=== PATIENT | male | born 2000 | race Caucasian/White ===

== ENCOUNTER 2018-11-13 15:30 | Observation (INO) ==
[2018-11-13] MEDS ORDERED: ONDANSETRON INJ 2 MG/ML 2 ML VIAL IV STA (16:19)
[2018-11-13] MEDS ORDERED: SODIUM CHLORIDE 0.9% 1000ML 1,000 ML IV SCH (16:30)
[2018-11-13 16:45] LABS: Appearance Urine Clear (Clear); Bilirubin Urine Negative (Negative); Color Urine Yellow; Glucose Urine UA Negative (Negative); Ketones Urine Negative (Negative); Leukocyte Esterase Urine Negative (Negative); Nitrite Urine Negative (Negative); Protein Urine Negative (Negative); Specific Gravity Urine 1.009 (1.000-1.030); Urobilinogen Urine Negative (Negative)
[2018-11-13] MEDS ORDERED: IOVERSOL 100ml IV PRN (17:11)
--- NOTE | 2018-11-13 17:31 | CT Scan Report ---
CT abd pelvis IV con only CLINICAL HISTORY: 18 years-old Male presenting with rlq pain eval for appendicitis, creatinine 1.1 to day at [facility]. TECHNIQUE: Multidetector CT of the abdomen and pelvis was performed after the administration of intra venous contrast. IV contrast: 94 mL of Optiray 320. One or more dose lowering techniques were used co nsistent with the principles of ALARA (as low as reasonably achievable), including automatic exposure control, mA or kV adjustment to individual patient size, and/or use of iterative reconstruction. COMPARISON: None. CT DOSE (mGy.cm): The estimated cumulative dose is 386.39 mGycm. FINDINGS: Tubular Stock Glass Bulb Machine Former topogram: Unremarkable. Lung bases: No focal infiltrate or nodule at the lung bases. Normal heart size. No pericardial or ple ural effusion. Liver: Normal morphology. No liver lesion. Mild periportal edema possibly due to aggressive volume re suscitation. Patent hepatic vasculature. Biliary: No intrahepatic or extrahepatic biliary ductal dilatation. Normal gallbladder. Pancreas: Normal. Spleen: Normal. Splenule noted. Adrenal glands: Normal. Kidneys and ureters: Normal. No hydronephrosis. Bladder: Incompletely evaluated secondary to underdistention. Pelvic organs: Prostate and seminal vesicles normal. Bowel: The appendix is mildly dilated measuring 9 mm in diameter. Mucosal thickening and hyperemia. A n obstructing calculus is noted at the appendiceal base with an additional appendicolith noted at the tip. Trace periappendiceal fat infiltration. No evidence of perforation. No adjacent fluid collectio n to suggest abscess. No bowel obstruction. No wall thickening of small bowel is apparent. Peritoneal cavity: No free fluid or intraperitoneal gas. Lymph nodes: No enlarged lymph nodes in the abdomen or pelvis. Vasculature: Aorta and IVC patent and normal in caliber. Abdominal wall: Normal. 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 IMPRESSION: 1. Acute uncomplicated appendicitis. Surgical consultation recommended. The report will be called/faxed according to standard departmental protocol. Electronically signed by: Steve Tran M.D. 11/13/2018 5:30 PM
[2018-11-13] MEDS ORDERED: PROPOFOL IV EMULSION 10 MG/ML 20 ML VIAL IV ONE (17:51)
[2018-11-13] MEDS ORDERED: ONDANSETRON INJ 2 MG/ML 2 ML VIAL ONE ×2 (17:51→18:53)
[2018-11-13] MEDS ORDERED: LIDOCAINE HCL 2% 2 ML VIAL/AMP(20MG/ML) INFIL ONE (17:51)
[2018-11-13] MEDS ORDERED: fentaNYL citrate 100 MCG/2 ML VIAL ONE (17:51)
[2018-11-13] MEDS ORDERED: GLYCOPYRROLATE 0.2 MG/ML VIAL ONE ×2 (17:51→18:53)
[2018-11-13] MEDS ORDERED: DEXAMETHASONE SOD INJ 4 MG/ML VIAL ONE (17:51)
[2018-11-13] MEDS ORDERED: NEOSTIGMINE METHYLSULFATE 5 MG/5 ML SYR ONE (17:51)
[2018-11-13] MEDS ORDERED: MIDAZOLAM HCL 1 MG/ML 2ML VIAL ONE (17:51)
--- NOTE | 2018-11-13 17:52 | History & Physical Report ---
Date of Service November 13, 2018 Assessment & Plan (1) Acute appendicitis: We discussed his diagnosis and recommendations. We discussed the risks of laparoscopic appendectomy which include bleeding, infection, injury to another organ, staple line leaks, DVT, PE etc. Following this discussion I answered all of his questions. We are going to take him to the ER [facility] for laparoscopic possible open appendectomy. History of Present Illness Primary Care Provider: [facility] Patient with a 5-day history of abdominal pain. Is primarily in the mid abdomen with slight deviation to the right lower quadrant. CT scan shows acute uncomplicated appendicitis. Allergies Allergy/AdvReac Type Severity Reaction Status Date / Time No Known Allergies Allergy Verified 11/13/18 16:26 Home Medications Home Medications Medication Instructions Recorded Confirmed Type albuterol sulfate 2 puff INHALATION Q6H PRN 07/30/18 11/13/18 History cetirizine [Zyrtec] 10 mg PO DAILY PRN 07/30/18 11/13/18 History Past Med/Surg History Medical History Asthma No significant past medical history Surgical History History of repair of ACL S/P left knee arthroscopy Family History Other No significant family history Social History Feels Safe at Home: Yes Smoking Status: Never smoker Review of Systems All systems reviewed & are unremarkable except as noted in HPI & below Physical Exam 2 Vital Signs (Past 24 Hours): Last Vital Signs Temp 37.0 C 11/13/18 15:47 Pulse 60 11/13/18 17:23 Resp 18 11/13/18 17:23 BP 131/66 11/13/18 17:23 Pulse Ox 99 11/13/18 17:23 Physical Exam: Alert and oriented x3 no acute distress. HEENT: [place]. EOMI. no jaundice Heart: RRR Lungs: cta b/l abd: soft. +guarding. +LLQ ttp. ext: no c/c/e Results & Data Medications Administered Ioversol (Optiray 320 100ml) 94 ml IV ONCE PRN PRN Reason: Interaction Checking Stop: 11/17/18 17:10 Last Admin: 11/13/18 17:12 Dose: 94 ml
--- NOTE | 2018-11-13 18:05 | Anesthesiology Consultation ---
Date of Service November 13, 2018 Assessment & Plan Chart Review Chart Review: Acceptable Risk for Surgery and Patient NOT seen in Pre Admission Testing Consults Requested none ASA ASA2E Proposed Anesthesia Anesthesia Type: General Risk / Benefits Reviewed With: PT / POA / Parent / Guardian, Accepts Plan and Informed Consent Obtained NPO Date Last Intake of Fluids: 11/13/18 Time Last Intake of Fluids: 14:00 Date Last Intake of Solids: 11/13/18 Time Last Intake of Solids: 12:00 History Surgery Operation Date: 11/13/18 18:15 Proposed Procedures p Laparoscopic Appendectomy - Stas Law, DO Height/Weight Height: 5 ft 10 in Weight: 75.6 kg Allergies Allergy/AdvReac Type Severity Reaction Status Date / Time No Known Allergies Allergy Verified 11/13/18 16:26 Medications Home Medications Medication Instructions Recorded Confirmed Last Taken albuterol sulfate 2 puff INHALATION Q6H PRN 07/30/18 11/13/18 Unknown cetirizine [Zyrtec] 10 mg PO DAILY PRN 07/30/18 11/13/18 Unknown Active Medications Generic Name Dose Route Start Last Admin Trade Name Freq PRN Reason Stop Dose Admin Ioversol 94 ml 11/13/18 17:11 11/13/18 17:12 Optiray 320 100ml IV 11/17/18 17:10 94 ml ONCE PRN Administration Interaction Checking Past Medical History Medical History Asthma No significant past medical history Past Family History Family History Other No significant family history Past Surgical History Surgical History History of repair of ACL S/P left knee arthroscopy Past Anesthesia History No Hx of Anesthesia Complications and No Family Hx of Anesthesia Complications History of PONV No Motion Sickness Screening History of Motion Sickness: No Social History Smoking Status: Never smoker Exercise / Class Metabolic Activity 1 > 8 Run/Swim/Ski/Tennis Physical Exam Vital Signs Last Vital Signs Temp 37.0 C 11/13/18 15:47 Pulse 60 11/13/18 17:23 Resp 18 11/13/18 17:23 BP 131/66 11/13/18 17:23 Pulse Ox 99 11/13/18 17:23 ENMT Mouth: no dentition abnormality Thyromental Distance: > or= 3.5 Finger Breadths Mallampati Class: II Neck normal visual inspection and trachea midline; neck extension not limited Respiratory normal respiratory effort Auscultation: lungs clear to auscultation bilaterally Cardiovascular Rate/Rhythm: regular rate and regular rhythm Heart Sounds: no murmur Vessels: no carotid bruit Neurologic moves all extremities Motor/Sensory: no sensory deficit Psychiatric Orientation: alert and oriented x 3 Testing Laboratory Results Urine Color Yellow 11/13/18 16:29 Urine Appearance Clear (Clear) 11/13/18 16:29 Urine pH 8.0 (4.5-7.5) H 11/13/18 16:29 Ur Specific [place] 1.009 (1.000-1.030) 11/13/18 16:29 Urine Protein Negative (Negative) 11/13/18 16:29 Urine Glucose (UA) Negative (Negative) 11/13/18 16:29 Urine Ketones Negative (Negative) 11/13/18 16:29 Urine Nitrite Negative (Negative) 11/13/18 16:29 Ur Leukocyte Esterase Negative (Negative) 11/13/18 16:29
[2018-11-13] MEDS ORDERED: ONDANSETRON INJ 2 MG/ML 2 ML VIAL IV PRN ×3 (18:07→20:19)
[2018-11-13] MEDS ORDERED: NALOXONE HCL 0.4 MG/1 ML VIAL/CARP IV PRN (18:07)
[2018-11-13] MEDS ORDERED: FLUMAZENIL 0.1 MG/1 ML 10 ML VIAL IV PRN (18:07)
[2018-11-13] MEDS ORDERED: HYDROmorphone INJ 1 MG/ML SYRINGE IV PRN (18:07)
[2018-11-13] MEDS ORDERED: ATROPINE SULFATE 0.1 MG/ML 10ML SYR IV PRN ×2 (18:07→18:13)
[2018-11-13] MEDS ORDERED: PROMETHAZINE HCL 12.5 MG in SODIUM CHLORIDE 0.9% 50 ML IV PRN (18:07)
[2018-11-13] MEDS ORDERED: ePHEDrine sulfate 50 MG/ML AMP IV PRN ×2 (18:07→18:13)
[2018-11-13] MEDS ORDERED: HYDROmorphone INJ 2 MG/ML SYR/VIAL IV PRN (18:13)
[2018-11-13] MEDS ORDERED: fentaNYL citrate 100 MCG/2 ML VIAL IV PRN (18:13)
[2018-11-13] MEDS ORDERED: PROMETHAZINE HCL 6.25 MG in SODIUM CHLORIDE 0.9% 50 ML IV PRN (18:13)
[2018-11-13] MEDS ORDERED: BUPIVACAINE/EPINEPHRINE 0.5% MPF 1:200,000 30 ML VIAL ONE (18:25)
--- NOTE | 2018-11-13 18:52 | Emergency Department Note ---
Entered by Kenyatta Reardon acting as a scribe for Luciano Calle MD History of Present Illness General Chief complaint: Abdominal Pain Stated complaint: ABD PAIN Source: patient History of Present Illness Onset (ago): day(s) 5 Location: abdomen Pain Consistency: + other (persistent) Maximum Pain Intensity: 6 Quality: + sharp and + other (pressure) Relieved By: not by other (passing gas) Exacerbated By: + eating and + other (stretching out, scrunched up) Associated symptoms: + denies other symptoms (diarrhea, hematuria) and + nausea/ vomiting (Positive nausea. Negative vomiting. ); no fever/chills (fever) The patient is a 18 year old male who presents to the Emergency Room with complaints of persistent abdominal pain starting 5 days ago. The patient states that the pain feels like a pressure throughout his upper abdomen and it becomes sharper the further down in his abdomen he goes. He notes that it is worst on the right side. He states that the pain is worse with stretching out, being scrunched up, and when he eats. He notes that at first he thought it was gas, but when he passes it, it offers no relief. He reports that it makes him nauseous intermittently. The patient states that he went to [facility]. He states that they did blood work and were concerned that he needs a CT scan. He states that they sent him here. The patient denies diarrhea, fever, vomiting, and hematuria. He notes that he is unsure if he has had black or bloody stools as he has not checked. Home Medications Home Medications Medication Instructions Recorded Confirmed Type albuterol sulfate 2 puff INHALATION Q6H PRN 07/30/18 11/13/18 History cetirizine [Zyrtec] 10 mg PO DAILY PRN 07/30/18 11/13/18 History Allergies Allergy/AdvReac Type Severity Reaction Status Date / Time No Known Allergies Allergy Verified 11/13/18 16:26 Past Med/Surg History Medical History Asthma No significant past medical history Surgical History History of repair of ACL S/P left knee arthroscopy Family History Other No significant family history Social History marital status: Single Current Living Situation Comment: Roommate current occupational status: student Feels Safe at Home: Yes Smoking Status: Never smoker Review of Systems See HPI for pertinent positives & negatives. and A total of 10 systems reviewed and were otherwise negative Physical Exam Vital Signs Vital Signs - 24 hr 11/13/18 15:47 11/13/18 17:23 Temperature 37.0 C Temperature Source Oral Sepsis Recent Fever Within 48 Hours No Sepsis Action Taken by Nursing No Action Required Pulse Rate 68 Pulse Rate [Apical] 60 Respiratory Rate 20 18 Respiratory Effort / Characteristics Non-Labored Respiratory Depth Normal Respiratory Pattern Regular Blood Pressure 159/69 H Blood Pressure [Left Arm] 131/66 Blood Pressure Mean 99 Blood Pressure Mean [Left Arm] 87 Pulse Oximetry 100 99 Oxygen Delivery Method Room Air Room Air Constitutional: Vital signs reviewed. Eyes: Pupils are equal round reactive to light. Conjunctiva are noninjected. ENT: Pharynx is clear without erythema or exudate. Mucous membranes are moist. Neck supple without meningeal signs. Respiratory: Clear to auscultation bilaterally. Breath sounds are equal bilaterally. Cardiovascular: Regular rate and rhythm. No rubs or gallops. GI: Soft, nondistended. Right lower quadrant tenderness and some mild epigastric tenderness. No guarding. No CVA tenderness. Bowel sounds are present. Musculoskeletal: No peripheral edema. No lower extremity tenderness. Integumentary: No cyanosis. Neurological: The patient is awake and alert. No focal deficits. Psychiatric: Normal affect. Course 1615: Past medical records reviewed. The patient was evaluated in room A9B, and a complete history and physical examination were performed. 1733: I reevaluated the patient and updated him on his test results. I discussed the test results with him. He verbally agrees and understands. 1735: I reviewed the patient's case with Dr. Law- General Surgeon. He will evaluate the patient for further management. Consultations Consultation #1: I reviewed the patient's case with Dr. Law- General Surgeon. He will evaluate the patient for further management. Time: 17:35 Administered Medications Ioversol (Optiray 320 100ml) 94 ml IV ONCE PRN PRN Reason: Interaction Checking Stop: 11/17/18 17:10 Last Admin: 11/13/18 17:12 Dose: 94 ml Discontinued Medications Sodium Chloride (Nss 1000ml) 1,000 mls @ 999 mls/hr IV .Q1H1M MY Stop: 11/13/18 17:30 Last Admin: 11/13/18 16:45 Dose: 999 mls/hr Ondansetron HCl (Zofran) 4 mg IV NOW STA Stop: 11/13/18 16:20 Last Admin: 11/13/18 16:45 Dose: 4 mg Medical Decision Making Differential Diagnosis Differential diagnoses include appendicitis, perforation, abscess, IBS, IBD, dyspepsia. Medical Records Attestation: I reviewed the patient's medical records. Home Medications Current Medication List: was personally reviewed by me Laboratory Data Attestation: I reviewed the patient's lab results. Lab Results 11/13/18 Range/Units 16:29 Urine Color Yellow Urine Appearance Clear (Clear) Urine pH 8.0 H (4.5-7.5) Ur Specific [place] 1.009 (1.000-1.030) Urine Protein Negative (Negative) Urine Glucose (UA) Negative (Negative) Urine Ketones Negative (Negative) Urine Blood Negative (Negative) Urine Nitrite Negative (Negative) Urine Bilirubin Negative (Negative) Urine Urobilinogen Negative (Negative) Ur Leukocyte Esterase Negative (Negative) Imaging Data Radiologist's Impression: Radiology results as stated below per my review and the radiologist's interpretation: CT abd pelvis IV con only CLINICAL HISTORY: 18 years-old Male presenting with rlq pain eval for appendicitis, creatinine 1.1 today at [facility]. TECHNIQUE: Multidetector CT of the abdomen and pelvis was performed after the administration of intravenous contrast. IV contrast: 94 mL of Optiray 320. One or more dose lowering techniques were used consistent with the principles of ALARA (as low as reasonably achievable), including automatic exposure control, mA or kV adjustment to individual patient size, and/or use of iterative reconstruction. COMPARISON: None. CT DOSE (mGy.cm): The estimated cumulative dose is 386.39 mGycm. FINDINGS: Certified Driver Examiner topogram: Unremarkable. Lung bases: No focal infiltrate or nodule at the lung bases. Normal heart size. No pericardial or pleural effusion. Liver: Normal morphology. No liver lesion. Mild periportal edema possibly due to aggressive volume resuscitation. Patent hepatic vasculature. Biliary: No intrahepatic or extrahepatic biliary ductal dilatation. Normal gallbladder. Pancreas: Normal. Spleen: Normal. Splenule noted. Adrenal glands: Normal. Kidneys and ureters: Normal. No hydronephrosis. Bladder: Incompletely evaluated secondary to underdistention. Pelvic organs: Prostate and seminal vesicles normal. Bowel: The appendix is mildly dilated measuring 9 mm in diameter. Mucosal thickening and hyperemia. An obstructing calculus is noted at the appendiceal base with an additional appendicolith noted at the tip. Trace periappendiceal fat infiltration. No evidence of perforation. No adjacent fluid collection to suggest abscess. No bowel obstruction. No wall thickening of small bowel is apparent. Peritoneal cavity: No free fluid or intraperitoneal gas. Lymph nodes: No enlarged lymph nodes in the abdomen or pelvis. Vasculature: Aorta and IVC patent and normal in caliber. Abdominal wall: Normal. 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 IMPRESSION: 1. Acute uncomplicated appendicitis. Surgical consultation recommended. The report will be called/faxed according to standard departmental protocol. Electronically signed by: Steve Tran M.D. 11/13/2018 5:30 PM Blood Pressure Blood Pressure Findings: Elevated blood pressure Blood Pressure Disposition: Referred to patients primary care provider OZZIE Narrative I did perform a limited focused review of portions of the patient's old chart on the electronic medical record. The patient has had no recent pertinent visits to this hospital. The patient had a PRP that was normal today at [facility] at 2 :30 PM. He also had normal LFTs, a white count of 5.9 with a normal CBC, and a lipase of 112. I did evaluate the patient as noted above. The patient is presenting with epigastric abdominal pain and right lower quadrant tenderness. IV access was established. He was made n.p.o. I did treat him with normal saline IV and Zofran IV. I did order and personally review the patient's urinalysis as described above. There is no evidence of infection. I did review his blood work from your chest. I did not repeat any here. I did order a CT of the abdomen and pelvis. I did review the images myself as well as the radiology report as described above. He does have uncomplicated acute appendicitis. I did discuss the test results with the patient. I did discuss case with the surgeon on-call who will take him to the operating room. Impression & Plan Acute appendicitis Discharge Plan Visit Data *Final* Discharge Date/Time: 11/13/18 17:40 Chief Complaint: Abdominal Pain Stated Complaint: ABD PAIN ED Provider: Luciano Calle Discharge Problem: Acute appendicitis Patient Disposition: Admitted As Inpatient Discharge Instructions Interventions: ED Discharge Assessment Last Done: 11/13/18 17:40 The scribe's documentation has been prepared under my direction and personally reviewed by me in its entirety. I confirm that the note above accurately reflects all work, treatment, procedures, and medical decision making performed by me.
[2018-11-13] MEDS ORDERED: SUCCINYLCHOLINE CHLORIDE 20 MG/ML 10 ML VIAL ONE (18:53)
[2018-11-13] MEDS ORDERED: ROCURONIUM BROMIDE 10 MG/ML 5 ML VIAL ONE (18:53)
[2018-11-13] MEDS ORDERED: KETOROLAC 30 MG/ML VIAL ONE (18:56)
[2018-11-13] MEDS ORDERED: KEFZOL SPECIAL PROCEDURE STOCK 1 GM ADDVIAL IV ONE (18:56)
--- NOTE | 2018-11-13 19:06 | Operative Report ---
Post Operative Report Pre & Post Diagnosis Operation Date: 11/13/18 18:15 Pre-Op Diagnosis: Acute appendicitis Post-Op Diagnosis: Acute appendicitis Procedure Operation Date: 11/13/18 18:15 Actual Procedures p Laparoscopic Appendectomy(Not Applicable) - Stas Law DO Surgeon Stas Law DO Call Center Agent n/a Estimated Blood Loss 5 Findings Consistent with Post-Op Diagnosis Specimens appendix Description of Procedure After informed consent was obtained the patient was taken to the operating room and placed in supine position. After successful intubation a Bernal catheter was placed and the left arm was tucked. A Bernal catheter was inserted sterilely. I began by making a periumbilical incision with an 11 blade scalpel and carried this down through the soft tissue using electrocautery. The anterior rectus fascia was opened using electrocautery and 2 #0 Vicryl stay sutures were placed. The peritoneum was elevated using hemostats and incised under direct vision using a Metzenbaum scissor. A finger sweep was performed. A 12 mm Lopez trocar was placed and the abdomen was insufflated to 18 mmHg. A laparoscope was inserted and the abdomen was examined in 360. A suprapubic 5 mm port and a left lower quadrant 12 mm port were placed under direct vision. The patient was air planed to the left as well as placed in a slight Trendelenburg position. We began by looking in the right lower quadrant. We were able to readily identify the appendix and it was grossly inflamed. It had not perforated. There is a small amount of purulent fluid in the right lower quadrant and the pelvis. We immediately irrigated and suctioned this out. I was able to use primarily blunt dissection to pull the appendix away from the right lower quadrant sidewall. I used a [place] dissector to create a small window in the mesentery of the appendix. The base of the appendix was then transected using a LAURA brown cartridge 60 mm stapler. I was then able to use a LAURA brown cartridge stapler to transect the mesentery of the appendix as well. It was then placed into an Endo Catch bag and removed from the camera port site. We thoroughly irrigated the right lower quadrant as well as the pelvis. There was adequate hemostasis. I ran the small bowel backwards from the terminal ileum for about 6 feet all of which was normal. All the peritoneal surfaces were normal. Small/ large bowel, liver, stomach etc. all appeared grossly normal. We did a final irrigation and then removed all the trochars and desufflated the abdomen. The fascia of the camera port as well as the left lower quadrant were closed using 0 Vicryl in [id number] fashion. Wounds were all irrigated and closed using 4-0 Monocryl. Marcaine was injected around them for postoperative analgesia and skin glue used as a dressing. The patient was awakened extubated and transferred to recovery in stable condition. I attest to the content of the Intraoperative Record and any orders documented therein. Any exceptions are noted below.
[2018-11-13] MEDS ORDERED: HYDROmorphone INJ 0.5 MG/0.5 ML SYR ONE (19:43)
--- NOTE | 2018-11-13 19:54 | Anesthesiology Progress Note ---
Date of Service November 13, 2018 Anesthesia Post Procedure Vital Signs Vital Signs: Temp Pulse Pulse Resp BP BP Pulse Ox 11/13/18 19:40 64 16 122/52 L 100 11/13/18 19:30 61 16 112/49 L 100 11/13/18 19:20 63 16 130/53 L 100 11/13/18 19:11 37.0 C 51 L 16 122/57 L 100 11/13/18 17:23 60 18 131/66 99 11/13/18 15:47 37.0 C 68 20 159/69 H 100 Pain Intensity Abdomen: Pain Intensity: 3 Notes Mental Status: alert / awake / arousable Patient Amnestic to Procedure: Yes Nausea / Vomiting: adequately controlled Pain: adequately controlled Airway Patency, RR, SpO2: stable & adequate BP & HR: stable & adequate Hydration State: stable & adequate Anesthetic Complications: no major complications apparent
[2018-11-13] MEDS ORDERED: MoRPHine SULFATE 4 MG/ML 1 ML CARP\\VIAL IV PRN (20:19)
[2018-11-13] MEDS ORDERED: MoRPHine SULFATE 10 MG/ML CARP/VIAL IV PRN (20:19)
[2018-11-13] MEDS ORDERED: HYDROCODONE/ACETAMOPHEN 5/325MG TAB PO PRN ×2 (20:19)
[2018-11-13] MEDS: LACTATED RINGER'S 1,000 ML IV SCH (21:37)
[2018-11-14] MEDS: LACTATED RINGER'S 1,000 ML IV SCH (05:20)
[2018-11-14 07:39] VITALS: TEMP 97.7; O2SAT 98
--- NOTE | 2018-11-14 10:05 | Surgery Progress Note ---
Date of Service November 14, 2018 Assessment & Plan (1) Acute appendicitis: pod 1 doing well ok for d/c instructions given. f/u 1-2 weeks. Subjective pt feeling ok. some shoulder discomfort. abdominal pain is better than pre-op Physical Exam 2 Vital Signs (Past 24 Hours): Last Vital Signs Temp 36.5 C 11/14/18 07:20 Pulse 47 L 11/14/18 07:20 Resp 14 11/14/18 07:20 BP 125/62 11/14/18 07:20 Pulse Ox 98 11/14/18 07:20 Physical Exam: parents at bedside. alert/oriented. nad abd: soft. expected tenderness. wounds look good. _ (1) Acute appendicitis Acute appendicitis type: unspecified acute appendicitis type Appendicitis abscess presence: Appendicitis gangrene presence: Appendicitis perforation presence: Qualified Code(s): K35.80 - Unspecified acute appendicitis
[2018-11-14 10:35] VITALS: BP 100/48; PULSE 78
--- NOTE | 2018-11-18 19:13 | Discharge Summary ---
PRIMARY DISCHARGE DIAGNOSIS: Acute appendicitis. PROCEDURE PERFORMED: Laparoscopic appendectomy. HOSPITAL COURSE: The patient is a 18-year-old male who presented to the Emergency Department with 5 days of abdominal pain. His white count was 15,000. CT was consistent with acute uncomplicated appendicitis. He was taken to the operating room that evening for laparoscopic appendectomy. Procedure was well tolerated. He was transferred to the surgical floor for overnight observation. On postoperative day 1 he was tolerating regular diet and oral analgesics. His abdomen was benign. He was stable for discharge. DISCHARGE INSTRUCTIONS: Discharge home. Follow up with Dr. Law in 2 weeks. DISCHARGE MEDICATIONS: [place] 1-2 tablets every 4 hours as needed. Can continue his home albuterol 2 puffs as needed and Zyrtec 10 mg daily.
== END 2018-11-14 11:46 | disposition home or self-care (01) ==
LOC: ED 15:30 → 3N 17:40 → OR 17:40
DX: K35.80 Unspecified acute appendicitis